=== PATIENT | female | born 2000 | race Caucasian/White ===

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

== ENCOUNTER 2022-09-13 01:50 | Emergency (ER) | payer BC, SELFPAY ==
[2022-09-13 01:51] VITALS: BP 176/122; RESP 20; TEMP 36.8; O2SAT 96; BMI 46.0
--- NOTE | 2022-09-13 02:07 | CT_ITS ---
PROCEDURE INFORMATION: Exam: CT Abdomen And Pelvis Without Contrast Exam date and time: 09/13/2022 2:51 AM Age: 22 years old Clinical indication: Abdominal pain; Additional info: Right flank pain TECHNIQUE: Imaging protocol: Computed tomography of the abdomen and pelvis without contrast. Radiation optimization: All CT scans at this facility use at least one of these dose optimization techniques: automated exposure control; mA and/or kV adjustment per patient size (includes targeted exams where dose is matched to clinical indication); or iterative reconstruction. REPORTING DATA: Count of CT and Cardiac NM exams in prior 12 months: This patient has received 0 known CTs and 0 known cardiac nuclear medicine studies in the 12 months prior to the current study. COMPARISON: No relevant prior studies available. FINDINGS: Liver: The liver is diffusely low in attenuation. No focal abnormalities are noted. Gallbladder and bile ducts: Normal. No calcified stones. No ductal dilation. Pancreas: Normal. No ductal dilation. Spleen: Normal. No splenomegaly. Adrenal glands: Normal. No mass. Kidneys and ureters: Normal. No hydronephrosis. Stomach and bowel: Unremarkable. No obstruction. No mucosal thickening. Appendix: The appendix is within normal limits. Intraperitoneal space: Unremarkable. No free air. No significant fluid collection. Vasculature: Unremarkable. No abdominal aortic aneurysm. Lymph nodes: Unremarkable. No enlarged lymph nodes. Urinary bladder: The bladder is moderately distended. Reproductive: The uterus is somewhat asymmetric positioned to the right. This could represent a uterine anomaly or adnexal process. Bones/joints: Unremarkable. No acute fracture. Soft tissues: Unremarkable. IMPRESSION: 1. Uterine asymmetry versus right adnexal prominence consider pelvic sonogram for further evaluation. 2. Diffuse hepatic steatosis.
--- NOTE | 2022-09-13 02:09 | HMH.EDGENADL ---
Discharge Plan Disposition Patient Disposition: Home, Self-Care Prescriptions Prescriptions: New ciprofloxacin HCl [Cipro] 500 mg tablet 500 mg PO BID Qty: 7 0RF promethazine 12.5 mg suppository 12.5 mg AZ Q6H PRN (Reason: nausea and vomiting) Qty: 12 0RF No Action metformin 1,000 mg tablet 1,000 mg PO BID Ozempic 1 mg/dose (2 mg/1.5 mL) Pen Injector 2 mg SQ WEEKLY Referrals Follow up/Referrals: Juaquin Bradford MD [Primary Care Provider] - See instructions Clinical Impressions Clinical Impression: Acute urinary retention Discharge ED Provider: Hank Johnson General Adult HPI General Chief complaint: PAIN Stated complaint: Right side and back pain, vomiting Time Seen by Provider: 09/13/22 02:03 Mode of Arrival: Ambulatory Source of Information: Patient Limitations: No Limitations Description of Symptoms (Recalled from ER Triage Doc. by RN): Pt states she began having right sided flank pain around 17:00 on 09/12/22 with episodes of vomiting. History of Present Illness HPI narrative: 22-year-old white female presents with right flank pain times about 8 hours. The patient has never had any pain like this before. She denies any fever but has had vomiting with this episode. She has no known allergies but does take metformin and Ozempic. Related Data Home Medications Medication Instructions Recorded Confirmed metformin 1,000 mg tablet 1,000 mg PO BID Diabetes 12/06/17 09/13/22 semaglutide 1 mg/dose (2 mg/1.5 2 mg SQ WEEKLY Diabetes 09/13/22 09/13/22 mL) subcutaneous pen injector (Ozempic) Previous Rx's Medication Instructions Recorded ciprofloxacin HCl 500 mg tablet 500 mg PO BID #7 tabs 09/13/22 (Cipro) promethazine 12.5 mg rectal 12.5 mg AZ Q6H PRN nausea and 09/13/22 suppository vomiting #12 ea Allergies Allergy/AdvReac Type Severity Reaction Status Date / Time No Known Allergies Allergy Verified 02/02/21 17:10 [facility] Disclaimer: The information contained in this section may have been updated after the patient was seen, as this information can be updated by other users. Social History Smoking Status: Unknown if ever smoked alcohol intake: never substance use type: denies use current occupational status: student Travel in the last 8 weeks: None household members: family housing: house ROS Obtained: Yes Systems reviewed as appropriate & no additional complaints except as documented Physical Exam General General appearance: alert, in distress and obese Head Head exam: atraumatic and normocephalic Eye Eye exam: Present normal appearance and PERRL Neck Neck exam: Present normal inspection Respiratory Respiratory exam: Present normal lung sounds bilaterally; Absent respiratory distress Cardiovascular Cardiovascular exam: Present regular rate and normal rhythm Abdominal Exam Abdominal exam: Present tenderness (Right flank) Neurological Exam Neurological exam: Present alert, oriented X3 and CN II-XII intact Medical Decision Making Medical Records MR Comment: 22-year-old white female presents with right flank pain. Patient had sudden onset pain few hours ago unlike anything she is typically had. 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 She is evaluated via a CBC CMP urinalysis urine drug screen and a lactic acid in addition to a CT abdomen and pelvis. Her white count is elevated with a left shift with 15,700 white cells 88 point 7% segs. Her chemistries are good with the exception of some liver enzyme elevation urinalysis is positive for 2+ protein 1+ ketones and no real signs of infection urine drug screen is negative. CT reveals steatohepatitis is and no evidence of any renal pathology. Her bladder scan showed greater than 679cc and she was unable to void so Field catheter was placed and anchored. Shon enriquez
[2022-09-13 02:22] LABS: Hematocrit 46.2 % (37.0-47.0); Hemoglobin 15.5 g/dL (12.2-16.2); Mean Corpuscular HGB Conc 33.7 g/dL (31.8-35.4); Mean Corpuscular Hemoglobin 28.6 pg (27.0-31.2); Mean Corpuscular Volume 84.9 fl (81-99); Mean Platelet Volume 8.2 fl (7.4-10.4); Neutrophils % 88.7 % (37.0-80.0); Platelet Count 368 K/mm3 (142-424); Red Blood Count 5.44 M/mm3 (4.20-5.40); Red Cell Distribution Width 13.3 % (11.5-17.5); White Blood Count 15.7 K/mm3 (4.5-13.0)
[2022-09-13 02:23] LABS: Basophils % 0.3 % (0.1-2.0); Eosinophils # 0.1 K/mm3 (0.0-0.4); Eosinophils % 0.3 % (0.1-12.0); Lymphocytes # 1.3 K/mm3 (0.7-4.5); Lymphocytes % 8.1 % (10-50); Monocytes # 0.4 K/mm3 (0.1-1.0); Monocytes % 2.2 % (1.7-9.3); Neutrophils # 13.9 K/mm3 (1.8-7.8)
[2022-09-13 02:25] LABS: MANUAL DIFFERENTIAL MANUAL DIFFERENTIAL (MANUAL DIFF)
[2022-09-13 02:32] LABS: Alanine Aminotransferase 85 U/L (12-78); Albumin Level 4.7 g/dl (3.5-5.0); Albumin/Globulin Ratio 1.1 (1.1-1.8); Alkaline Phosphatase 87 U/L (38-126); Amylase 76 U/L (30-110); Anion Gap 14.3 mEq/L (5-15); Aspartate Amino Transferase 55 U/L (14-36); Bilirubin,Total 0.4 mg/dl (0.2-1.3); Blood Urea Nitrogen 8 mg/dl (7-17); Calcium 9.7 mg/dl (8.4-10.2); Carbon Dioxide 27 mmol/L (22.0-30.0); Chloride 105 mmol/L (98-107); Creatinine Clearance Estimated 155 mL/min (50-200); Estimated Glomerular Filt Rate 157 ml/min (>60); GFR (African American) 190 ML/MIN (>60); Globulin 4.2 g/dL (1.3-3.2); Glucose 128 mg/dl (74-100); Potassium 4.3 mmoL/L (3.5-5.1); Sodium 142 mmol/L (136-145); Total Protein,Serum 8.9 g/dl (6.3-8.2)
[2022-09-13 02:33] LABS: HCG Qualitative, Serum Negative (Negative)
--- NOTE | 2022-09-13 02:42 | PC.NURSE ---
pt to restroom
[2022-09-13 03:47] LABS: Microscopic, Urine URINE MICROSCOPIC (MICROSCOPIC)
--- NOTE | 2022-09-13 04:04 | PC.NURSE ---
pt vomiting, no vitals at this time
[2022-09-13 04:08] LABS: Amphetamine/Metha Screen,Urine Negative ng/ml (<1000); Barbiturates Screen,Urine Negative ng/ml (<200); Benzodiazepines Screen,Urine Negative ng/ml (<200); Cannabinoid Screen,Urine Negative ng/ml (<50); Cocaine Screen,Urine Negative ng/ml (<300); Methadone Screen,Urine Negative ng/ml (<300); Opiate Screen,Urine Negative ng/ml (<300); Phencyclidine Screen,Urine Negative ng/ml (<25)
[2022-09-13 04:09] LABS: Appearance,Urine Cloudy (Clear); Bilirubin,Urine Negative (Negative); Blood, Urine Trace (Negative); Color,Urine Yellow (Yellow); Glucose,Urine (UA) Negative (Negative); Ketones,Urine 1+ (Negative); Leukocyte Esterase,Urine Negative (Negative); Nitrate,Urine Negative (Negative); PH,Urine 7.5 (5.0-8.5); Protein,Urine 2+ (Negative); RBC,Urine Occasional #/hpf (0-3); Squamous Epithelial Cell,Urine Occasional #/hpf (0-5); Urobilinogen,Urine 0.2 EU/dl (0.2)
[2022-09-13 04:10] LABS: Amorphous Sediment,Urine Trace /lpf
[2022-09-13 04:28] LABS: Lymphocytes % 10 % (10-50); Monocytes % 3 % (2-9); Neutrophils % 87 % (42-76); Platelet Estimate Normal; RBC Morphology Normal; Total Cells Counted 100
--- NOTE | 2022-09-13 05:15 | XR_ITS ---
PROCEDURE INFORMATION: Exam: XR Chest Exam date and time: 09/13/2022 5:23 AM Age: 22 years old Clinical indication: Pain; Other: R. Flank; Additional info: Right flank pain TECHNIQUE: Imaging protocol: Radiologic exam of the chest. Views: 1 view. COMPARISON: CT ABDOMEN PELVIS WO CON 09/13/2022 2:51 AM FINDINGS: Lungs: Unremarkable. No consolidation. Pleural spaces: Unremarkable. No pleural effusion. No pneumothorax. Heart/Mediastinum: Unremarkable. No cardiomegaly. Bones/joints: Unremarkable. IMPRESSION: No acute findings.
[2022-09-13 05:29] VITALS: BP 162/93; PULSE 114; O2SAT 94
[2022-09-13 05:59] VITALS: BP 155/98; PULSE 72; RESP 20; O2SAT 94
[2022-09-13 06:03] VITALS: BP 157/71; PULSE 97; RESP 18; TEMP 36.8; O2SAT 97
[2022-09-13 06:31] VITALS: BP 151/101; PULSE 75; RESP 75; O2SAT 95
== END 2022-09-13 06:44 | disposition home or self-care (01) ==
PROVIDERS: Emergency Provider Emergency Medicine; PCP Family Medicine
DX: R33.9 Retention of urine, unspecified (principal); R11.10 Vomiting, unspecified; R10.9 Unspecified abdominal pain
CPT/HCPCS: 51702; 71045; 74176; 80053; 80305; 81001; 82150; 84703; 85007; 85025; 87086; 96361; 96372; 96374; 96375; 99284; 99285; J0696; J2405

== ENCOUNTER → 2022-09-24 12:50 | Outpatient (CLI) | payer BC, SELFPAY ==
--- NOTE | 2022-09-24 12:54 | US_ITS ---
PROCEDURE: US PELVIC CLINICAL INDICATION: URINARY RETENTION,RT ADNEXAL TENDERNESS,ABN CT OF PELVIS COMPARISON: No exams were available for comparison FINDINGS: Transabdominal sonographic images of the pelvis were obtained. Somewhat difficult scan due to the patient's obesity. UTERUS: 7cm x 4cmx 3cm with a combined endometrial thickness of 5.6mm. LEFT OVARY: 12.0 cm cmx12.7 cmx11.1cm with a volume of 887.5ml.Within the left ovary is a cyst measuring 10.5 x 10.2 cm. RIGHT OVARY: 6cmx 6wip2hp with a volume of 42.3ml. It has a solid appearance and is slightly enlarged. Both ovaries are seen. Doppler flow to both ovaries are seen. There is no fluid in the cul-de-sac. IMPRESSION: 1. Uterus is anteverted and normal in shape and size with a thin endometrium. 2. The right ovary appears normal but has a more solid appearance. 3. The left ovary is markedly enlarged with a 10.5 centimeter simple appearing cyst likely a serous cystadenoma. 4. It is difficult to determine with certainty whether this cyst is on the right or left ovary. 5. Suggest a gynecology consult. Dictated by: Jose Angel Ellis MD 09/24/2022 17:06 Jose Angel Ellis MD in [place] 09/24/2022 17:06
== END ==
PROVIDERS: PCP Family Medicine; Visit Provider Family Medicine
DX: R10.2 Pelvic and perineal pain (principal); R33.8 Other retention of urine; R93.5 Abnormal findings on diagnostic imaging of other abdominal regions, including retroperitoneum
CPT/HCPCS: 76856

== ENCOUNTER → 2022-10-25 14:15 | Outpatient (CLI) | payer BC, SELFPAY ==
--- NOTE | 2022-10-25 14:15 | US_ITS ---
PROCEDURE: US PELVIC CLINICAL INDICATION: Amenorrhea COMPARISON: US US PELVIC from 09/24/2022 FINDINGS: Transabdominal sonographic images of the pelvis were obtained. UTERUS: 6.9 cm x 4.2 cmx 4.1 cm with a combined endometrial thickness of 4.2mm. LEFT OVARY: 12.3 cmx14.0 cmx11.8cm with a volume of 1,063ml.The left ovary continues to have a simple appearing cyst that has enlarged from 10.5 cm to 14.1 cm in size. RIGHT OVARY: 3.8 cmx 0.6 cmx2.4 cm with a volume of 17.5ml. Both ovaries are seen. Doppler flow to both ovaries are seen. There is no fluid in the cul-de-sac. IMPRESSION: 1. Anteverted uterus normal in shape and size. The endometrium is thin. 2. The left ovary is markedly enlarged with a simple appearing cyst. It has increased in size from 10.5 cm to 14.1 cm. 3. Right ovary appears normal. 4. No fluid in the cul-de-sac. Dictated by: Jose Angel Ellis MD 10/26/2022 11:10 Jose Angel Ellis MD in [facility] 10/26/2022 11:10
== END ==
LOC: RAD 14:15
PROVIDERS: PCP Family Medicine; Visit Provider Obstetrics & Gynecology
DX: N83.202 Unspecified ovarian cyst, left side (principal); R33.8 Other retention of urine
CPT/HCPCS: 76856

== ENCOUNTER → 2022-11-16 14:02 | Outpatient (CLI) | payer BC, SELFPAY ==
[2022-11-16 14:47] LABS: Basophils # 0.1 K/mm3 (0-0.2); Basophils % 0.8 % (0.1-2.0); Eosinophils # 0.4 K/mm3 (0.0-0.4); Eosinophils % 3.8 % (0.1-12.0); Hematocrit 43.3 % (37.0-47.0); Hemoglobin 14.3 g/dL (12.2-16.2); Lymphocytes # 2.7 K/mm3 (0.7-4.5); Lymphocytes % 29.9 % (10-50); Mean Corpuscular HGB Conc 32.9 g/dL (31.8-35.4); Mean Corpuscular Hemoglobin 28.7 pg (27.0-31.2); Mean Platelet Volume 8.1 fl (7.4-10.4); Monocytes # 0.4 K/mm3 (0.1-1.0); Monocytes % 4.5 % (1.7-9.3); Neutrophils # 5.6 K/mm3 (1.8-7.8); Neutrophils % 61.1 % (37.0-80.0); Platelet Count 340 K/mm3 (142-424); Red Blood Count 4.97 M/mm3 (4.20-5.40); Red Cell Distribution Width 13.6 % (11.5-17.5); White Blood Count 9.2 K/mm3 (4.5-13.0)
[2022-11-16 15:14] LABS: Alanine Aminotransferase 68 U/L (12-78); Albumin Level 4.1 g/dl (3.5-5.0); Albumin/Globulin Ratio 1.2 (1.1-1.8); Alkaline Phosphatase 58 U/L (38-126); Anion Gap 13.8 mEq/L (5-15); Aspartate Amino Transferase 48 U/L (14-36); Bilirubin,Total 0.6 mg/dl (0.2-1.3); Blood Urea Nitrogen 9 mg/dl (7-17); Calcium 9.2 mg/dl (8.4-10.2); Carbon Dioxide 26 mmol/L (22.0-30.0); Chloride 106 mmol/L (98-107); Estimated Glomerular Filt Rate 107 ml/min (>60); GFR (African American) 129 ML/MIN (>60); Globulin 3.3 g/dL (1.3-3.2); Glucose 82 mg/dl (74-100); Potassium 3.8 mmoL/L (3.5-5.1); Sodium 142 mmol/L (136-145); Total Protein,Serum 7.4 g/dl (6.3-8.2)
[2022-11-16 15:33] LABS: HCG,Quantitative < 2 mIU/ml (0-5.42)
== END ==
PROVIDERS: PCP Family Medicine; Visit Provider Obstetrics & Gynecology
DX: N92.0 Excessive and frequent menstruation with regular cycle (principal)
CPT/HCPCS: 36415; 80053; 84702; 85025

== ENCOUNTER 2022-11-20 06:51 | Day surgery (SDC) | payer BC, SELFPAY ==
[2022-11-20] VITALS (13 sets, daily range): BP systolic 116–152; BP diastolic 62–100; PULSE 72–114; RESP 14–18; TEMP 36.9–43; O2SAT 91–98; BMI 44.2
[2022-11-20 07:49] LABS: POC Glucose,Bedside 89 (70-110)
--- NOTE | 2022-11-20 08:58 | EXP.ANES.CKL ---
[facility] Disclaimer: The information contained in this section may have been updated after the patient was seen, as this information can be updated by other users. Medical History History of hypertension Hypertension Irregular menses PCOS (polycystic ovarian syndrome) Type 2 diabetes mellitus Surgical History [place] teeth removed Family History Other Hyperlipidemia Hypertension Social History Smoking Status: Never smoker alcohol intake: never substance use type: denies use current occupational status: student Travel in the last 8 weeks: None household members: family housing: house [facility] Anesthesia Checklist Patient Identification Patient Identification: Arm Band Structural Data Admitted From: Home Planned Operative Procedure/s: Diagnostic Laparoscopy, Left Ovarian Cystectomy Consent for Planned Operative Procedure(s) Verified: Yes Verified Documents: Surgical Consent and History and Physical NPO Status Verified Time NPO: 00:00 Additional verifications Anesthesia Reactions: No Hx Blood Transfusions: No Blood Transfusion Reaction: No Airway Assessment Mallampati Score:: Class II C-Spine Mobility Assessed: Yes TMJ Mobility Assessed: Yes Dentition: Good Dentition Neurological Assessment Level of Consciousness: Awake and Alert Anesthesia Plan Anesthesia Risk discussed: Yes Anesthesia Plan: Verified ASA Class: III Anesthesia Type: General
--- NOTE | 2022-11-20 11:26 | P.PNANES_ITS ---
[facility] Anesthesia Record Part I Anesthesia Record I Intake, IV Amount: 1,500 Hydration: Adequate Estimated blood loss (mL): 20 Urine output (mL): 0 Blood Products used (#): none Blood Pressure: 137/99 SaO2: 92 Pulse Rate: 101 Airway Patency: Patent Respiratory Rate: 16 Temperature: 99.1 F Patient is:: Drowsy and Stable Stable to PACU at:: 11:15
--- NOTE | 2022-11-20 11:48 | SUR.PHASEI ---
FS 112
--- NOTE | 2022-11-20 11:59 | EXP.OP.NOTE ---
Date of procedure: 11/20/22 Pre-op Diagnosis:: 1. Simple right ovarian cyst 2. Pelvic pressure 3. PCOS 4. Oligoamenorrhea 5. Desires IUD Post-op Diagnosis:: 1. Simple right ovarian cyst 2. Pelvic pressure 3. PCOS 4. Oligoamenorrhea 5. Desires IUD Procedure performed:: 1. Diagnostic laparoscopy with right ovarian cystectomy 2. IUD placement Surgeon:: Korin Melgar DO Director Of Financial Planning(s):: Kyra Nguyen DO RESIDENTIAL TECH:: Barber Saldaña Anesthesia: GETA Estimated blood loss (mL): 25 Operative findings:: 1. Bimanual examination revealed an a narrowed introidus. anteverted 8-week size uterus no palpable adnexal fullness appreciable secondary to habitus. The hymen was intact at the start of the case but was torn during speculum exam. 2. Laparoscopic wxam revealed a pelvis occupying right ovarian cyst, simple in appearance. normal appearing ovary that was noted included in the cyst. normal appearing left ovary with out cyst. Normal-appearing uterus, tubes and liver. Operative note:: The patient is a 22-year-old G0 presenting with a diagnosis of simple right adnexal mass that had grown from 10cm to 14cm. The mass was causing significant pressure. All risks and benefits of laparoscopic ovarian cystectomy had been discussed with the patient in clinic. All her questions were answered. The patient was taken to the operating room in stable condition. The patient was taken to the OR where she was placed under general anesthesia without difficulty for laparoscopic ovarian cystectomy. She was then prepped and draped in the usual sterile fashion and placed in the dorsal lithotomy position. A preoperative bimanual examination revealed findings as above. A sponge stick was placed vaginally for uterine manipulation. An in an out catheter was used to drain the bladder. Attention was then turned to the abdomen where a total of 30mL of Lidocaine was used to inject the three abdominal incisions. A 5mm incision was made infraumbilically, under direct visualization the trocar was inserted, under direct visualization by the camera. CO2 gas was connected with an initial pressure of 7 mmHg noted.? Pneumoperitoneum was created to a pressure of 15 mmHg. The abdomen was insufflated using approximately 4 liters of CO2 gas. The laparoscopic camera was inserted and a quick survey of the abdomen revealed grossly normal anatomy.? The uterus appeared to be anteverted with a normal size shape and contour. The patient was placed in Trendelenburg.? A 5mm incision was then made in the right lower quadrant with careful attention to avoid the rectus muscles and vasculature and under direct laparoscopic visualization a blunt trocar was introduced into the abdominal cavity.? This process was repeated on the left side. Examination of the pelvis revealed findings as above. The ovarian cyst was pelvis occupying and immediately noted. The needle aspirated was hooked to suction and introduced to the abdomen. It was used to puncture the ovarian cyst and drain the fluid. This fluid was collected and sent to pathology for further evaluation. The cyst appeared to be pedunculated along the long edge of the ovary. The Ligasure was used to dissect the cyst wall from the ovary. The left lower quadrant port was transitioned to an 11mm port for an endocatch bag. Once the cyst wall was free The right ovary was noted to have a small 2-3 cm hemorrhagic cyst. The laparoscopic osmin were used to make a small incision using electrocautery. The right ovarian cyst was drained successfully and hemostasis obtained with electrocautery. The Endo Catch bag was placed through the 10 mm port and the cyst was placed in the Endo Catch bag intact. The bag was tagged with a hemostat and the 10mm camera was placed back through the port. The pelvis was irrigated and hemostasis noted. At this time, all instruments were removed under visualization. The 10 mm umbilical incision was closed using a figure of eight 0-Vicryl stitch. The 4 lap
[2022-11-20 12:05] LABS: POC Glucose,Bedside 112 (70-110)
--- NOTE | 2022-11-20 17:49 | EXP.OP.NOTE ---
Date of procedure: 11/20/22 Pre-op Diagnosis:: 1. Simple right ovarian cyst 2. Pelvic pressure 3. PCOS 4. Oligoamenorrhea 5. Desires IUD Post-op Diagnosis:: 1. Simple right ovarian cyst 2. Pelvic pressure 3. PCOS 4. Oligoamenorrhea 5. Desires IUD Procedure performed:: 1. Diagnostic laparoscopy with right ovarian cystectomy 2. IUD placement Surgeon:: Korin Melgar DO Medical Reimbursement Manager(s):: Kyra Nguyen DO TOPOGRAPHICAL SURVEYOR:: Barber Saldaña Anesthesia: GETA Estimated blood loss (mL): 25 Operative findings:: 1. Bimanual examination revealed an a narrowed introidus. anteverted 8-week size uterus no palpable adnexal fullness appreciable secondary to habitus. The hymen was intact at the start of the case but was torn during speculum exam. 2. Laparoscopic wxam revealed a pelvis occupying right ovarian cyst, simple in appearance. normal appearing ovary that was noted included in the cyst. normal appearing left ovary with out cyst. Normal-appearing uterus, tubes and liver. Operative note:: Operative note:: The patient is a 22-year-old G0 presenting with a diagnosis of simple right adnexal mass that had grown from 10cm to 14cm. The mass was causing significant pressure. All risks and benefits of laparoscopic ovarian cystectomy had been discussed with the patient in clinic. All her questions were answered. The patient was taken to the operating room in stable condition. The patient was taken to the OR where she was placed under general anesthesia without difficulty for laparoscopic ovarian cystectomy. She was then prepped and draped in the usual sterile fashion and placed in the dorsal lithotomy position. A preoperative bimanual examination revealed findings as above. A sponge stick was placed vaginally for uterine manipulation. An in an out catheter was used to drain the bladder. Attention was then turned to the abdomen where a total of 30mL of Lidocaine was used to inject the three abdominal incisions. A 5mm incision was made infraumbilically, under direct visualization the trocar was inserted, under direct visualization by the camera. CO2 gas was connected with an initial pressure of 7 mmHg noted.? Pneumoperitoneum was created to a pressure of 15 mmHg. The abdomen was insufflated using approximately 4 liters of CO2 gas. The laparoscopic camera was inserted and a quick survey of the abdomen revealed grossly normal anatomy.? The uterus appeared to be anteverted with a normal size shape and contour. The patient was placed in Trendelenburg.? A 5mm incision was then made in the right lower quadrant with careful attention to avoid the rectus muscles and vasculature and under direct laparoscopic visualization a blunt trocar was introduced into the abdominal cavity.? This process was repeated on the left side. Examination of the pelvis revealed findings as above. The ovarian cyst was pelvis occupying and immediately noted. The needle aspirated was hooked to suction and introduced to the abdomen. It was used to puncture the ovarian cyst and drain the fluid. This fluid was collected and sent to pathology for further evaluation. The cyst appeared to be pedunculated along the long edge of the ovary. The Ligasure was used to dissect the cyst wall from the ovary. The left lower quadrant port was transitioned to an 11mm port for an endocatch bag. Once the cyst wall was free it was placed in the endocatch bag and the bag was pulled to the anterior abdominal wall. The cyst wall was too large to fit through the trocar. The pelvis was copiously irrigated. Hemostasis was noted. Images of postprocedure findings were captured. The trocar was removed and the bag was tagged with hemostat and the cyst wall was gently and carefully dissected and pulled from the endocatch bag. At this time, all instruments were removed from the abdomen. The 10 mm umbilical incision was closed using a figure of eight 0-Vicryl stitch. The 3 laparoscopic incisions were closed using interrupted stitches of 4-0 Monocryl suture
--- NOTE | 2022-11-21 07:20 | P.PNANES_ITS ---
[facility] Anesthesia Record Part II Anesthesia Record Part II Discharge Time: 12:05 Destination: Surgical Day Care (OP Surgery) PACU nurse assessment reviewed?: Yes Patient Condition:: Good Anesthesia Complications:: None Swallowing reflex intact?: Yes Airway Patency: Patent Cyanosis?: No Blood Pressure: 139/90 SaO2: 95 Respiratory Rate: 18 Pulse Rate: 90 Temperature: 99.1 F Mental Status: Alert & Oriented Pain level:: 0 Nausea and/or vomitting:: None Intake, IV Amount: 0 Hydration: Adequate
[2022-11-21 07:22] VITALS: BP 139/90; PULSE 90; RESP 18; TEMP 37.3; O2SAT 95
== END 2022-11-20 13:15 | disposition home or self-care (01) ==
PROVIDERS: PCP Family Medicine; Visit Provider Obstetrics & Gynecology
PROC: 0TTB4ZZ Resection of Bladder, Percutaneous Endoscopic Approach (ICD-10-PCS; CPT 51999; principal; 2022-11-20 09:30)
DX: D27.0 Benign neoplasm of right ovary (principal); E28.2 Polycystic ovarian syndrome; R10.2 Pelvic and perineal pain; Z30.430 Encounter for insertion of intrauterine contraceptive device; E11.9 Type 2 diabetes mellitus without complications
CPT/HCPCS: 58662; 58300; 82962; J2405

== ENCOUNTER 2023-10-30 09:39 | Outpatient (CLI) | payer BC, SELFPAY ==
[2023-10-30 09:45] LABS: Microscopic, Urine URINE MICROSCOPIC (MICROSCOPIC)
[2023-10-30 10:02] LABS: Basophils # 0.1 K/mm3 (0-0.2); Eosinophils # 0.4 K/mm3 (0.0-0.4); Eosinophils % 3.3 % (0.1-12.0); Hematocrit 45.3 % (37.0-47.0); Hemoglobin 15.1 g/dL (12.2-16.2); Lymphocytes # 3.8 K/mm3 (0.7-4.5); Lymphocytes % 32.6 % (10-50); Mean Corpuscular HGB Conc 33.4 g/dL (31.8-35.4); Mean Corpuscular Hemoglobin 29.5 pg (27.0-31.2); Mean Corpuscular Volume 88.2 fl (81-99); Mean Platelet Volume 8.1 fl (7.4-10.4); Monocytes # 0.6 K/mm3 (0.1-1.0); Monocytes % 4.7 % (1.7-9.3); Neutrophils # 6.8 K/mm3 (1.8-7.8); Neutrophils % 58.5 % (37.0-80.0); Platelet Count 323 K/mm3 (142-424); Red Blood Count 5.14 M/mm3 (4.20-5.40); White Blood Count 11.7 K/mm3 (4.8-10.8)
[2023-10-30 10:15] LABS: Appearance,Urine CLEAR (Clear); Bilirubin,Urine Negative (Negative); Blood, Urine TRACE-I (Negative); Color,Urine YELLOW (Yellow); Glucose,Urine (UA) Negative (Negative); Ketones,Urine Negative (Negative); Leukocyte Esterase,Urine Negative (Negative); Nitrate,Urine Negative (Negative); Protein,Urine Negative (Negative); Specific Gravity, Urine 1.015 (1.005-1.030); Urobilinogen,Urine 0.2 EU/dl (0.2)
[2023-10-30 11:32] LABS: Chloride 108 mmol/L (98-107); Sodium 140 mmol/L (136-145)
[2023-10-30 11:33] LABS: Potassium 3.6 mmoL/L (3.5-5.1)
[2023-10-30 11:35] LABS: Alanine Aminotransferase 72 U/L (12-78); Albumin/Globulin Ratio 1.4 (1.1-1.8); Alkaline Phosphatase 59 U/L (38-126); Anion Gap 9.6 mEq/L (5-15); Aspartate Amino Transferase 44 U/L (14-36); Bilirubin,Total 0.6 mg/dl (0.2-1.3); Blood Urea Nitrogen 4 mg/dl (7-17); Carbon Dioxide 26 mmol/L (22.0-30.0); Cholesterol 116 mg/dl (140-200); Estimated Glomerular Filt Rate 126 ml/min (>60); GFR (African American) 153 ML/MIN (>60); Globulin 2.9 g/dL (1.3-3.2); Total Protein,Serum 6.9 g/dl (6.3-8.2); Triglycerides 75 mg/dl (30-150); VLDL Cholesterol 15 mg/dL (0-40)
[2023-10-30 11:36] LABS: Calcium 8.9 mg/dl (8.4-10.2); Chol/HDL Ratio 3.6 (1-3.5); Glucose 96 mg/dl (74-100); HDL Cholesterol 32 mg/dl (40-60)
[2023-10-30 11:47] LABS: Direct LDL Cholesterol 63.77 mg/dL (100-129)
[2023-10-30 11:54] LABS: Free T4 (Free Thyroxine) 1.36 ng/dl (0.78-2.19)
[2023-10-30 12:07] LABS: Thyroid Stimulating Hormone 5.66 uIU/mL (0.465-4.68)
[2023-10-30 12:14] LABS: Bacteria,Urine Trace /lpf; Squamous Epithelial Cell,Urine Occasional #/hpf (0-5); WBC,Urine Occasional #/hpf (0-3)
[2023-10-30 12:33] LABS: Hemoglobin A1C 4.7 % (4.0-6.0)
[2023-10-30 15:04] LABS: 25-OH Vitamin D, Total 24.6 ng/mL (30-100)
[2023-10-30 15:36] LABS: Vitamin B12 561 pg/mL (239-931)
== END 2023-10-30 23:59 | disposition home or self-care (01) ==
LOC: LAB 09:41
PROVIDERS: PCP Nurse Practitioner Family; Visit Provider Nurse Practitioner Family
DX: R53.83 Other fatigue (principal); E11.9 Type 2 diabetes mellitus without complications; Z79.85 Long-term (current) use of injectable non-insulin antidiabetic drugs; Z68.41 Body mass index [BMI] 40.0-44.9, adult; Z13.220 Encounter for screening for lipoid disorders; Z86.79 Personal history of other diseases of the circulatory system
CPT/HCPCS: 36415; 80050; 80053; 80061; 81001; 82306; 82607; 83036; 84439; 84443; 85025; 87086

== ENCOUNTER 2024-07-22 14:43 | Outpatient (CLI) | payer MEDICAID, SELFPAY ==
[2024-07-22 17:19] LABS: Basophils # 0.1 K/mm3 (0-0.2); Basophils % 0.5 % (0.1-2.0); Eosinophils # 0.4 Kmm3 (0.0-0.4); Eosinophils % 3.5 % (0.1-12.0); Hematocrit 46.8 % (37.0-47.0); Hemoglobin 15.9 g/dL (12.2-16.2); Immature Granulocytes # 0.03 10^3uL; Immature Granulocytes % 0.3 %; Lymphocytes # 2.6 K/mm3 (0.7-4.5); Lymphocytes % 26.1 % (10-50); Mean Corpuscular Hemoglobin 29.5 pg (27.0-31.2); Mean Corpuscular Volume 86.8 fl (81-99); Mean Platelet Volume 10.5 fl (7.4-10.4); Monocytes # 0.5 K/mm3 (0.1-1.0); Monocytes % 4.7 % (1.7-9.3); Neutrophils # 6.5 K/mm3 (1.8-7.8); Neutrophils % 64.9 % (37.0-80.0); Nucleated Red Blood Cells # 0 10^3/uL; Nucleated Red Blood Cells % 0 %; Platelet Count 333 K/mm3 (142-424); Red Blood Count 5.39 M/mm3 (4.20-5.40); Red Cell Distribution Width 12.7 % (11.5-17.5); Red Cell Distribution Width-SD 39.8 fL
[2024-07-22 18:32] LABS: Hemoglobin A1C 5.8 % (4.0-6.0)
[2024-07-22 19:23] LABS: Alanine Aminotransferase 130 U/L (12-78); Albumin Level 4.5 g/dl (3.5-5.0); Albumin/Globulin Ratio 1.6 (1.1-1.8); Alkaline Phosphatase 64 U/L (38-126); Anion Gap 12.3 mEq/L (5-15); Aspartate Amino Transferase 80 U/L (14-36); Bilirubin,Total 0.7 mg/dl (0.2-1.3); Blood Urea Nitrogen 9 mg/dl (7-17); Calcium 9.6 mg/dl (8.4-10.2); Carbon Dioxide 27 mmol/L (22.0-30.0); Chloride 103 mmol/L (98-107); Chol/HDL Ratio 3.7 (1-3.5); Cholesterol 114 mg/dl (140-200); Estimated Glomerular Filt Rate 125 ml/min (>60); GFR (African American) 151 ML/MIN (>60); Globulin 2.9 g/dL (1.3-3.2); Glucose 85 mg/dl (74-100); HDL Cholesterol 31 mg/dl (40-60); Potassium 4.3 mmoL/L (3.5-5.1); Sodium 138 mmol/L (136-145); Total Protein,Serum 7.4 g/dl (6.3-8.2); Triglycerides 89 mg/dl (30-150); VLDL Cholesterol 18 mg/dL (0-40)
[2024-07-22 19:34] LABS: Direct LDL Cholesterol 72.87 mg/dL (100-129)
[2024-07-22 19:40] LABS: Free T4 (Free Thyroxine) 1.09 ng/dl (0.78-2.19)
[2024-07-22 19:41] LABS: 25-OH Vitamin D, Total 25.8 ng/mL (30-100)
[2024-07-22 19:52] LABS: Thyroid Stimulating Hormone 1.25 uIU/mL (0.465-4.68)
[2024-07-22 19:56] LABS: HIV Combo NEGATIVE (Negative)
[2024-07-22 20:07] LABS: Hepatitis C Ab Qual. W/ RFX NEGATIVE (Negative)
== END 2024-07-22 23:59 | disposition home or self-care (01) ==
LOC: LAB.DROPOF 22:55
PROVIDERS: PCP Nurse Practitioner Family; Visit Provider Nurse Practitioner Family
DX: E66.01 Morbid (severe) obesity due to excess calories (principal); E11.9 Type 2 diabetes mellitus without complications; I10 Essential (primary) hypertension; G47.33 Obstructive sleep apnea (adult) (pediatric); R53.83 Other fatigue; R79.89 Other specified abnormal findings of blood chemistry; R41.3 Other amnesia; Z11.4 Encounter for screening for human immunodeficiency virus [HIV]; Z13.220 Encounter for screening for lipoid disorders; Z11.59 Encounter for screening for other viral diseases
CPT/HCPCS: 80053; 80061; 82306; 83036; 84439; 84443; 85025; 86803; 87389

== ENCOUNTER 2024-07-24 16:08 | Outpatient (CLI) | payer MEDICAID, SELFPAY ==
[2024-07-24 16:09] LABS: Microscopic, Urine URINE MICROSCOPIC (MICROSCOPIC)
[2024-07-24 16:45] LABS: Appearance,Urine CLEAR (Clear); Bilirubin,Urine Negative (Negative); Blood, Urine TRACE-I (Negative); Color,Urine YELLOW (Yellow); Glucose,Urine (UA) Negative (Negative); Ketones,Urine Negative (Negative); Leukocyte Esterase,Urine TRACE (Negative); Nitrate,Urine Negative (Negative); Protein,Urine Negative (Negative); Urobilinogen,Urine 0.2 EU/dl (0.2)
[2024-07-24 16:56] LABS: Creatinine,Urine Random 60 mg/dL (Not Estab.); Microalbumin/Creatinine Ratio 20.6
[2024-07-24 17:28] LABS: Bacteria,Urine 3+ /lpf; Mucus,Urine 1+ /lpf
== END 2024-07-24 23:59 | disposition home or self-care (01) ==
LOC: LAB.DROPOF 16:08
PROVIDERS: PCP Nurse Practitioner Family; Visit Provider Nurse Practitioner Family
DX: Z11.4 Encounter for screening for human immunodeficiency virus [HIV] (principal); Z13.220 Encounter for screening for lipoid disorders; Z11.59 Encounter for screening for other viral diseases; I10 Essential (primary) hypertension; E66.01 Morbid (severe) obesity due to excess calories; E11.9 Type 2 diabetes mellitus without complications; R53.83 Other fatigue; R79.89 Other specified abnormal findings of blood chemistry
CPT/HCPCS: 81001; 82043; 82570; 84156; 87086

== ENCOUNTER 2024-07-29 08:48 | Outpatient (CLI) | payer MEDICAID, SELFPAY ==
--- NOTE | 2024-07-29 09:00 | US_ITS ---
FINAL REPORT CLINICAL HISTORY: elevated LFTs COMPARISON: None FINDINGS: Sonographic images of the right upper quadrant were obtained. The pancreas is partially obscured.There is diffuse fatty infiltration of the liver. There is a small 9 mm hypoechoic focus in the right lobe, that likely represents a small hepatic cyst. The gallbladder appears normal without evidence of gallstones.There is no evidence of biliary ductal dilatation.The common duct measures 4mm. Limited images of the right kidney are unremarkable. IMPRESSION: Diffuse fatty infiltration of the liver, with a small hypoechoic probable cyst measuring 9 mm as described. No gallstones or biliary ductal dilatation are seen. Reviewed, Interpreted and Dictated by Emile Arthur MD Transcribed by Cora Saucedo Authenticated and [facility]
== END 2024-07-29 23:59 | disposition home or self-care (01) ==
LOC: RAD 08:49
PROVIDERS: PCP Nurse Practitioner Family; Visit Provider Nurse Practitioner Family
DX: K76.0 Fatty (change of) liver, not elsewhere classified (principal); R93.2 Abnormal findings on diagnostic imaging of liver and biliary tract; R79.89 Other specified abnormal findings of blood chemistry
CPT/HCPCS: 76705